=== PATIENT | male | born 1950 | race Caucasian/White ===

== ENCOUNTER 2016-08-30 12:31 | Emergency (ER) | payer MEDICARE ==
[~2016-08-30] VITALS: Ht 172.7 cm; Wt 81.4 kg
[~2016-08-30 12:31] MED LIST: ATEN25TA PO; CIPR500T87 PO; FOLI0.4T2 PO; FOLIC ACID PO; HYDR-3138 PO; MELA3TAB PO; METH2.5T PO; MULT-717 PO; OMEP20TA62 PO; PRILOSEC PO; SUMA50TA4 PO; TAMS-11 PO; VITA1TAB19 PO; [UNRECOGNIZED DRUG - CODE] PO
[2016-08-30] MEDS ORDERED: OXYcodone/APAP 5/325MG TABLET PO ONE (13:30)
[2016-08-30 13:34] LABS: HEMOGLOBIN 12.3 g/dL (13.7-18.0)
[2016-08-30 13:46] LABS: ASPARTATE AMINO TRANSFERASE 39 U/L (15-37); BLOOD UREA NITROGEN 20 mg/dL (7-18)
[2016-08-30] MEDS ORDERED: OXYcodone/APAP 5/325MG TABLET ONE (14:59)
[2016-08-30 16:46] VITALS: BP 99/55
== END 2016-08-30 16:48 | disposition home or self-care (01) ==
LOC: ED 16:15
DX: M96.830 Postprocedural hemorrhage of a musculoskeletal structure following a musculoskeletal system procedure (principal); M25.511 Pain in right shoulder; N28.9 Disorder of kidney and ureter, unspecified; R60.9 Edema, unspecified; I10 Essential (primary) hypertension; M19.90 Unspecified osteoarthritis, unspecified site
CPT/HCPCS: 36415; 80053; 85025; 93970; 99285

== ENCOUNTER → 2016-09-25 | Outpatient (CLI) | payer MEDICARE | END | disposition home or self-care (01) | LOC: WOUND 09:00 | PROVIDERS: ATTEND Physician Assistant | DX: T81.31XD Disruption of external operation (surgical) wound, not elsewhere classified, subsequent encounter (principal); G32.81 Cerebellar ataxia in diseases classified elsewhere; I10 Essential (primary) hypertension; G89.4 Chronic pain syndrome; G47.00 Insomnia, unspecified; M10.9 Gout, unspecified; K21.9 Gastro-esophageal reflux disease without esophagitis; M06.9 Rheumatoid arthritis, unspecified; Z87.891 Personal history of nicotine dependence; Y83.8 Other surgical procedures as the cause of abnormal reaction of the patient, or of later complication, without mention of misadventure at the time of the procedure | CPT/HCPCS: 97597; G0463; WOU0463 ==

== ENCOUNTER → 2016-10-02 | Outpatient (CLI) | payer MEDICARE | END | disposition home or self-care (01) | LOC: WOUND 08:47 | PROVIDERS: ATTEND Physician Assistant | DX: T81.31XD Disruption of external operation (surgical) wound, not elsewhere classified, subsequent encounter (principal); Z86.73 Personal history of transient ischemic attack (TIA), and cerebral infarction without residual deficits; I10 Essential (primary) hypertension; G89.4 Chronic pain syndrome; M10.9 Gout, unspecified; G47.00 Insomnia, unspecified; G43.909 Migraine, unspecified, not intractable, without status migrainosus; K21.9 Gastro-esophageal reflux disease without esophagitis; M06.9 Rheumatoid arthritis, unspecified; Z87.891 Personal history of nicotine dependence; Y83.8 Other surgical procedures as the cause of abnormal reaction of the patient, or of later complication, without mention of misadventure at the time of the procedure | CPT/HCPCS: G0463; WOU0463 ==

== ENCOUNTER → 2016-10-06 | Outpatient (CLI) | payer MEDICARE | END | disposition home or self-care (01) | LOC: WOUND 13:52 | PROVIDERS: ATTEND Nurse Practitioner Family | DX: T81.31XD Disruption of external operation (surgical) wound, not elsewhere classified, subsequent encounter (principal); G89.4 Chronic pain syndrome; I10 Essential (primary) hypertension; K21.9 Gastro-esophageal reflux disease without esophagitis; M06.9 Rheumatoid arthritis, unspecified; M19.90 Unspecified osteoarthritis, unspecified site; G32.81 Cerebellar ataxia in diseases classified elsewhere; Z86.73 Personal history of transient ischemic attack (TIA), and cerebral infarction without residual deficits; Z87.891 Personal history of nicotine dependence; Y83.8 Other surgical procedures as the cause of abnormal reaction of the patient, or of later complication, without mention of misadventure at the time of the procedure | CPT/HCPCS: G0463; WOU0463 ==

== ENCOUNTER → 2017-02-11 | Outpatient (CLI) | payer MEDICARE ==
[~2017-02-11] MED LIST changes: +ETOD300C27 PO; -HYDR-3138 PO; +HYDR-3237 PO; -MELA3TAB PO; +MELA3TAB2 PO; -[UNRECOGNIZED DRUG - CODE] PO
== END | disposition home or self-care (01) ==
LOC: CFH 10:00
PROVIDERS: ATTEND Internal Medicine
DX: K40.90 Unilateral inguinal hernia, without obstruction or gangrene, not specified as recurrent (principal); I10 Essential (primary) hypertension
CPT/HCPCS: 76857

== ENCOUNTER 2020-07-18 10:49 | Inpatient (IN) | payer MEDICARE ==
[~2020-07-18] VITALS: Ht 165.1 cm; Wt 83.1 kg
[~2020-07-18 10:49] MED LIST changes: -FOLI0.4T2 PO; +FOLI0.4T5 PO; -MELA3TAB2 PO; +MELA3TAB31 PO
--- NOTE | 2020-07-18 11:08 | NUR ---
RLQ PAIN X 7 DAYS. WORSE LAST NIGHT VOMITING NO HX OF ABD SURGERY DOES HAVE HX OF KIDNEY STONES NO BM IN 4 DAYS URINE DARK THIS AM
[2020-07-18] MEDS ORDERED: ONDANSETRON 2MG/ML, 2ML ONE ×2 (11:19→17:35)
[2020-07-18] MEDS ORDERED: HYDROmorphone 1 MG/ML, 1ML INJ ONE ×2 (11:19→12:55)
[2020-07-18] MEDS: HYDROmorphone 2 MG/ML, 1ML IVPush PRN ×2 (11:21→13:08)
[2020-07-18] MEDS ORDERED: ONDANSETRON 2MG/ML, 2ML IVPush ONE (11:30)
--- NOTE | 2020-07-18 11:33 | NUR ---
report recived. iv started admin pain and n/v meds.
--- NOTE | 2020-07-18 11:35 | NUR ---
pt un able to void. md aware
[2020-07-18 11:42] LABS: BASOPHILS % (AUTO) 0 % (0-1); EOSINOPHILS % (AUTO) 0 % (1-7); LYMPHOCYTES % (AUTO) 5 % (22-44); MEAN CORPUSCULAR HEMOGLOBIN 31.7 pg (27.5-34.5); MEAN CORPUSCULAR HGB CONC 33.6 g/dL (33.2-36.2); MEAN PLATELET VOLUME 9.1 fL (7.4-10.4); MONOCYTES % (AUTO) 4 % (2-9); NEUTROPHILS % (AUTO) 91 % (42-75); PLATELET COUNT 251 x10^3/uL (130-400); RED BLOOD COUNT 4.45 x10^6/uL (4.38-5.82)
[2020-07-18 11:49] LABS: ALANINE AMINOTRANSFERASE 89 U/L (12-78); ALBUMIN 3.9 g/dL (3.4-5.0); ANION GAP 8 mmol/L (5-15); CALCIUM 9.7 mg/dL (8.5-10.1); CHLORIDE 109 mmol/L (98-107); CREATININE 1.51 mg/dL (0.7-1.3)
[2020-07-18 11:51] LABS: ALKALINE PHOSPHATASE 88 U/L (45-117); BILIRUBIN,TOTAL 2.1 mg/dL (0.2-1.0); TOTAL PROTEIN 8.1 g/dL (6.4-8.2)
[2020-07-18 12:06] LABS: MD SCAN
--- NOTE | 2020-07-18 13:24 | NUR ---
PT IN BED, STILL WAITING FOR UA
--- NOTE | 2020-07-18 13:53 | NUR ---
PT BELONGINGS PLACED IN BAG, COVID TEST SENT, REPORT GIVEN TO CLAUDIA
[2020-07-18] MEDS ORDERED: GABA300S PO (13:57)
[2020-07-18] MEDS ORDERED: GABA-826 PO (13:58)
[2020-07-18 14:30] VITALS: BP 119/76
[2020-07-18] MEDS ORDERED: BUPIVACAINE/PF 0.5% ONE (14:55)
[2020-07-18] MEDS ORDERED: EPINEPHRINE 1 MG/ML, 1ML ONE (14:55)
[2020-07-18] MEDS ORDERED: ONDANSETRON 2MG/ML, 2ML IVPush PRN (15:00)
[2020-07-18] MEDS ORDERED: MELATONIN 3 MG TABLET PO PRN (15:00)
[2020-07-18] MEDS: SODIUM CHLORIDE 0.9% 1,000 ML IV SCH ×2 (15:00→21:51)
[2020-07-18] MEDS ORDERED: MORPHINE SULFATE 4 MG/ML, 1ML IVPush PRN (15:00)
[2020-07-18] MEDS ORDERED: FENTANYL PF 250 MCG/5ML ONE (15:03)
[2020-07-18] MEDS ORDERED: BUPIVACAINE/PF-EPI 0.5% 1:200K INFIL ONE (16:15)
[2020-07-18] MEDS ORDERED: FENTANYL PF 100 MCG/2ML ONE ×2 (17:34→18:03)
[2020-07-18] MEDS ORDERED: ROCURONIUM 10MG/ML,5ML ONE (17:35)
[2020-07-18] MEDS ORDERED: DEXAMETHASONE 4 MG/ML, 1ML ONE (17:35)
[2020-07-18] MEDS ORDERED: SUCCINYLCHOLINE 20 MG/ML, 10ML ONE (17:35)
[2020-07-18] MEDS ORDERED: GLYCOPYRROLATE 0.2MG/1ML, 5ML ONE (17:35)
[2020-07-18] MEDS ORDERED: CEFAZOLIN 1,000 MG ONE (17:35)
[2020-07-18] MEDS ORDERED: NEOSTIGMINE 1 MG/ML, 10ML ONE (17:35)
[2020-07-18] MEDS ORDERED: PROPOFOL 10 MG/ML, 20ML ONE (17:35)
[2020-07-18] MEDS ORDERED: PROMETHAZINE 25 MG/ML, 1ML IVPush PRN (18:00)
[2020-07-18] MEDS ORDERED: HYDROmorphone 1 MG/ML, 1ML INJ IVPush PRN (18:00)
[2020-07-18] MEDS ORDERED: METHOCARBAMOL 1,000 MG in DEXTROSE 5% 100 ML IV PRN (18:00)
[2020-07-18] MEDS ORDERED: LORazepam 2 MG/ML, 1ML IVPush PRN (18:00)
[2020-07-18] MEDS ORDERED: EPHEDRINE 50 MG/ML, 1ML IVPush PRN (18:00)
[2020-07-18] MEDS ORDERED: ACETAMINOPHEN 325 MG TABLET PO PRN (18:00)
[2020-07-18] MEDS ORDERED: OXYcodone 5 MG/5 ML ORAL.SOL UDC PO PRN (18:00)
[2020-07-18] MEDS ORDERED: LABETALOL 5MG/ML, 20ML IV PRN (18:00)
[2020-07-18] MEDS ORDERED: hydrALAzine 20 MG/ML, 1ML IV PRN (18:00)
[2020-07-18] MEDS: FENTANYL PF 100 MCG/2ML IV PRN ×2 (18:07→18:13)
[2020-07-18] MEDS ORDERED: OXYcodone 5 MG/5 ML ORAL.SOL UDC ONE (18:12)
[2020-07-18 20:02] VITALS: BP 111/70
[2020-07-18] MEDS: GABAPENTIN 100 MG CAPSULE PO SCH (21:16)
[2020-07-18] MEDS: HYDROcodone/APAP 5/325 TABLET PO PRN (21:16)
[2020-07-18] MEDS: SUMATRIPTAN 50 MG TABLET PO PRN (21:50)
[2020-07-19] MEDS: HYDROcodone/APAP 5/325 TABLET PO PRN (01:01)
[2020-07-19 02:02] VITALS: BP 112/71
[2020-07-19 04:20] VITALS: BP 100/64
[2020-07-19] MEDS: SUMATRIPTAN 50 MG TABLET PO PRN ×2 (04:38→22:13)
[2020-07-19] MEDS ORDERED: ONDA4TAB7 PO (06:29)
[2020-07-19] MEDS ORDERED: HYDR-1067 PO (06:29)
[2020-07-19 07:09] LABS: MICROSCOPIC INDICATED
[2020-07-19 08:30] VITALS: BP 118/73
[2020-07-19] MEDS: TAMSULOSIN 0.4 MG CAP.ER.24H PO SCH (09:32)
[2020-07-19] MEDS: FOLIC ACID 1 MG TABLET PO SCH (09:32)
[2020-07-19] MEDS: GABAPENTIN 300 MG CAPSULE PO SCH (09:32)
[2020-07-19] MEDS: SODIUM CHLORIDE 0.9% 1,000 ML IV SCH ×2 (11:41→21:16)
[2020-07-19 13:45] VITALS: BP 100/60
[2020-07-19] MEDS: HYDROcodone/APAP 10/325 MG TABLET PO PRN ×3 (15:22→19:40)
[2020-07-19 19:09] VITALS: BP 102/61
[2020-07-19] MEDS: GABAPENTIN 100 MG CAPSULE PO SCH (19:40)
[2020-07-20] MEDS: SUMATRIPTAN 50 MG TABLET PO PRN (00:41)
[2020-07-20] MEDS: HYDROcodone/APAP 10/325 MG TABLET PO PRN ×2 (00:45→06:45)
[2020-07-20 00:58] VITALS: BP 119/66
[2020-07-20 05:09] LABS: BASOPHILS % (AUTO) 1 % (0-1); EOSINOPHILS % (AUTO) 3 % (1-7); LYMPHOCYTES % (AUTO) 15 % (22-44); MEAN CORPUSCULAR HEMOGLOBIN 31.9 pg (27.5-34.5); MEAN CORPUSCULAR HGB CONC 33.5 g/dL (33.2-36.2); MEAN PLATELET VOLUME 8.8 fL (7.4-10.4); MONOCYTES % (AUTO) 13 % (2-9); NEUTROPHILS % (AUTO) 68 % (42-75); PLATELET COUNT 149 x10^3/uL (130-400); RED BLOOD COUNT 3.52 x10^6/uL (4.38-5.82); RED CELL DISTRIBUTION WIDTH 14.8 % (9.4-14.8)
[2020-07-20 05:14] LABS: ANION GAP 3 mmol/L (5-15); CALCIUM 8.6 mg/dL (8.5-10.1); CHLORIDE 113 mmol/L (98-107); CREATININE 1.27 mg/dL (0.7-1.3); MD NO
[2020-07-20 07:10] VITALS: BP 112/69
[2020-07-20] MEDS: FOLIC ACID 1 MG TABLET PO SCH (08:52)
[2020-07-20] MEDS: SODIUM CHLORIDE 0.9% 1,000 ML IV SCH (08:52)
[2020-07-20] MEDS: TAMSULOSIN 0.4 MG CAP.ER.24H PO SCH (08:52)
[2020-07-20] MEDS: GABAPENTIN 300 MG CAPSULE PO SCH (08:52)
== END 2020-07-20 11:42 | disposition home or self-care (01) | DRG 351 ==
LOC: ED 13:09 → EDIP 13:15 → 4NE 14:07 → DCLOUNGE 07-20 11:33
PROVIDERS: ADMIT Internal Medicine; ATTEND Family Medicine
PROC: 8E0W4CZ Robotic Assisted Procedure of Trunk Region, Percutaneous Endoscopic Approach (ICD-10-PCS; 2020-07-18)
PROC: 0YUA4JZ Supplement Bilateral Inguinal Region with Synthetic Substitute, Percutaneous Endoscopic Approach (ICD-10-PCS; principal; 2020-07-18 17:00)
DX: K40.00 Bilateral inguinal hernia, with obstruction, without gangrene, not specified as recurrent (principal); K56.7 Ileus, unspecified; N13.2 Hydronephrosis with renal and ureteral calculous obstruction; M48.56XA Collapsed vertebra, not elsewhere classified, lumbar region, initial encounter for fracture; N17.9 Acute kidney failure, unspecified; Z20.822 Contact with and (suspected) exposure to COVID-19; G43.909 Migraine, unspecified, not intractable, without status migrainosus; I10 Essential (primary) hypertension; M06.9 Rheumatoid arthritis, unspecified; Z96.611 Presence of right artificial shoulder joint; R74.8 Abnormal levels of other serum enzymes; Z79.899 Other long term (current) drug therapy; Z87.442 Personal history of urinary calculi
CPT/HCPCS: 36415; 74176; 80048; 80053; 81001; 83735; 85025; 87086; 87106; 87635; 96374; 96375; 96376; 99285; G0378; J0171; J0690; J1100; J1170; J2405; J2704; J2710; J3010; C1781; J0330; J2270; J7030